=== PATIENT | female | born 1965 | race Two or more races ===

== ENCOUNTER 2016-08-03 15:46 | Emergency (ER) | payer OTHER ==
[~2016-08-03] VITALS: Ht 154.9 cm; Wt 59.0 kg
[~2016-08-03 15:46] MED LIST: 1-ME1LIQ PO; ADVA250A INH; ALBU1AER INH; AMIT25TA20 PO; ATOR20TA42 PO; HYDR-3533 PO; LISI-363 PO; MAGN1SOL2 PO; NAPR500 PO; PERI8.6T PO; POLY119S PO; SERT-132 PO
[2016-08-03 15:48] VITALS: BP 194/105; PULSE 93; RESP 17; TEMP 98.7; O2SAT 95
[2016-08-03] MEDS ORDERED: AMLO10TA2 PO (16:15)
[2016-08-03] MEDS ORDERED: ADVA250A INH (16:15)
[2016-08-03] MEDS ORDERED: ATOR40TA16 PO (16:15)
[2016-08-03] MEDS ORDERED: ALBUAER3 INH (16:15)
--- NOTE | 2016-08-03 16:20 | PD ---
HPI Chief Complaint: Abdominal Pain Time Seen by Provider: 16:20 Travel History International Travel<30 days: No Contact w/Intl Traveler<30days: No Traveled to known affect area: No History of Present Illness HPI 51-year-old female with a history of hypertension and hyperlipidemia presents to the emergency department for evaluation of epigastric discomfort for 2 days. The patient states that after eating she has noticed that she has a pressure in her epigastric region and feels as though "food is stuck." She denies any nausea, vomiting, retching, diarrhea. States that she has some bloating. She does have constipation which is chronic, she did have a bowel movement today that was small and hard which is typical for her. She denies any fever, chills , chest pain, shortness of breath, cough or cold symptoms. Denies alcohol or drug use. The patient states that the feeling of the food being stuck is causing her to feel anxious which is why she came to the emergency room. States that she called her PCP about this and they have referred her to a electromyographic technician and she is waiting on her appointment to be scheduled. Prior abdominal surgeries include sections, ovarian cyst removal, lysis of adhesions. No other complaints. PFSH Past Medical History Asthma: Yes Blood Disorders: No Heart Rhythm Problems: No Cancer: No Cardiovascular Problems: No High Cholesterol: Yes Chemotherapy: No Chest Pain: No Congestive Heart Failure: No COPD: No Diabetes: No Endocrine: No Genitourinary: No Headaches: Yes Hypertension: Yes Musculoskeletal: Yes (BACK PROBLEMS) Neurologic: No Psychiatric: No Respiratory: Yes Migraines: Yes Radiation Therapy: No Sleep Apnea: No Thyroid Disease: No ?: Not Menopausal: Yes Ectopic : Yes Past Surgical History Abdominal Surgery: Yes (C SECTION) Appendectomy: Yes Section: Yes (X 3) Hysterectomy: Yes Pacemaker: No Tonsillectomy: Yes Other Surgery: Yes (LYSIS OF ADHESIONS) Social History Alcohol Use: Yes (OCC) Tobacco Use: No (QUIT 3 MONTHS AGO) Substance Use: No Allergies-Medications (Allergen,Severity, Reaction): Coded Allergies: No Known Allergies (Unverified , 08/03/16) Reported Meds & Prescriptions Reported Meds & Active Scripts Active Reported Amlodipine (Amlodipine Besylate) 10 Mg Tab 10 Mg PO DAILY Atorvastatin (Atorvastatin Calcium) 40 Mg Tab 40 Mg PO HS Advair Diskus Inh (Fluticasone-Salmeterol Inh) 250-50 Mcg/Blist Aer 1 Puff INH BID Rinse mouth after use. Proair Hfa 8.5 GM Inh (Albuterol Sulfate) 90 Mcg/Act Aer 2 Puff INH Q6H PRN 108 mcg/actuation Advair Diskus 250/50 (Salmeterol Xinafoate/Fluticasone) 250 Mcg/50 Mcg Inhp 1 Puff INH BID Review of Systems Except as stated in HPI: all other systems reviewed are Neg Physical Exam Narrative GENERAL: Well-nourished and well-developed pleasant female patient in no acute distress who is nontoxic appearing. SKIN: Warm and dry. HEAD: Normocephalic and atraumatic. EYES: No injection, drainage, or hyphema noted. PERRLA. EOMI. ENT: No nasal drainage noted. Oropharynx is clear . NECK: Supple and the trachea is midline. CARDIOVASCULAR: Regular rate and rhythm. RESPIRATORY: Breath sounds are equal bilaterally with no accessory muscle use, wheezing, rhonchi, or crackles. GASTROINTESTINAL: Mild epigastric tenderness to palpation. Negative Childers's sign. Negative McBurney's point. No rebound tenderness or guarding. Abdomen is soft and nondistended. MUSCULOSKELETAL: No obvious deformities, swelling, cyanosis, or ecchymosis is present throughout the upper and lower extremities. NEUROLOGICAL: Awake, alert, and oriented. Normal speech and gait. Cranial nerves are grossly intact. Data Data Last Documented VS Vital Signs Date Time Temp Pulse Resp B/P Pulse Ox O2 Delivery O2 Flow Rate FiO2 08/03/16 15:48 98.7 93 17 194/105 95 Orders Al-Mag Hy-Si 40-40-4 Mg/Ml Liq (Mag-Al P (08/03/16 16:30) Lidocaine 2% Viscous (Xylocaine 2% Visco (08/03/16 16:30) MDM Medical Decision Making Medical Screen Exam Complete: Yes Emergency Medical Condition: Yes Differential Diagnosis Gastritis versus GERD versus esophageal stricture Narrative Course 51-year-old female presents to the emergency department for evaluation of epigastric abdominal discomfort for 2 days. Patient is afebrile, vital signs are stable. On abdominal examination she has slight epigastric tenderness to palpation however overall abdominal examination is benign. Based on the patient 's history and physical examination it seems that she is describing gastritis or possible esophageal stricture. I reviewed the EMR which shows her last EGD was in 2013 and did show gastritis without any stricture or other abnormality. The patient is administered a GI cocktail. She was able to keep down food and fluids at this time I don't think that she requires any lab work or imaging. She has been referred to a electromyographic technician by her PCP. I discussed with the patient supportive care and the importance of outpatient follow-up with a electromyographic technician. Patient verbalizes understanding and agreement with treatment plan. I discussed the case with my attending physician Dr. Danielle who is aware of the patients history, physical examination findings, and treatment plan. Diagnosis Primary Impression: Gastritis Qualified Code: K29.00 - Acute gastritis without hemorrhage, unspecified gastritis type Referrals: Size Roller Operator Patient Instructions: General Instructions Additional Instructions: Take medications as prescribed. Follow-up with your Primary Care Physician. Return to the ED for any acute worsening of symptoms such as worsening pain, vomiting, inability to eat or drink. Med/Other Pt SpecificInfo: Prescription(s) given Scripts Vrqwqsja-Cbypwnige-Rczxeaeadas Liq (Maalox Max Liq)400-400-40 Mg/5 Ml Susp10 Ml PO QID 5 Days Ref 0 Take between meals or as directed. Shake well. Maximum 60 ml/24 hrs. Prov:Maggi Danielle MD 08/03/16 Ranitidine (Zantac)150 Mg Wvs023 Mg PO BID #60 TAB Ref 0 Prov:Maggi Danielle MD 08/03/16 Disposition: 01 DISCHARGE HOME Condition: Stable Ivette Sellers August 03, 2016 16:20
[2016-08-03] MEDS ORDERED: LIDOCAINE VISCOUS 2% SOLN 15 ML UDC PO ONE (16:30)
[2016-08-03] MEDS ORDERED: ALUMINUM/MAGNESIUM/SIMETH 30 ML CUP PO ONE (16:30)
[2016-08-03] MEDS ORDERED: ZANT150T2 PO ×2 (16:31→17:03)
[2016-08-03] MEDS ORDERED: MAALSUS PO ×2 (16:31→17:03)
== END 2016-08-03 17:48 | disposition home or self-care (01) ==
LOC: NEPD 15:46
DX: K29.00 Acute gastritis without bleeding (principal); I10 Essential (primary) hypertension; E78.5 Hyperlipidemia, unspecified; J45.909 Unspecified asthma, uncomplicated
CPT/HCPCS: 99283

== ENCOUNTER → 2016-09-27 | Day surgery (SDC) | payer OTHER ==
[~2016-09-27] MED LIST changes: -1-ME1LIQ PO; +ACETAMINOPHEN/HYDROcodone 325 MG/5 MG TAB ONE; -ALBU1AER INH; +ALBUAER3 INH; -AMIT25TA20 PO; +AMLO10TA2 PO; -ATOR20TA42 PO; +ATOR40TA16 PO; -HYDR-3533 PO; +LACTATED RINGER'S 1000 ML INJ 1,000 ML ONE; -LISI-363 PO; +MAALSUS PO; -MAGN1SOL2 PO; +MIDAZOLAM HCL 2 MG/2 ML VIAL ONE; +MORPHINE SULFATE 4 MG/ML INJ ONE; -NAPR500 PO; +ONDANSETRON HCL 4 MG/2 ML VIAL IV PUSH ONE; -PERI8.6T PO; -POLY119S PO; +PROPOFOL 200 MG/20 ML AMP IV ONE; -SERT-132 PO; +TRIAMCINOLONE ACETONIDE 40 MG/ML VIAL ONE; +ZANT150T2 PO; +ceFAZolin INJ 1,000 MG VIAL ONE
--- NOTE | 2016-09-27 14:11 | TN ---
cc: RAY GOMEZ DATE OF SURGERY: September 27, 2016 PREOPERATIVE DIAGNOSIS 1. Left knee internal derangement. POSTOPERATIVE DIAGNOSIS 1. Left knee complex tear medial meniscus. PROCEDURE Left knee arthroscopic surgery - subtotal medial meniscectomy. SURGEON Ray Gomez MD DENTAL FLOSS PACKER MAURY Dickens SPECIMEN None. ESTIMATED BLOOD LOSS None. COMPLICATIONS None. ANESTHESIA General. TOURNIQUET TIME 11 minutes at 250 mmHg. CONDITION Stable. PLAN OF ACTIVITY Per orders. PROCEDURE My psych assistant MAURY Dickens was present for the entire surgical case. She was medically necessary for the entire case because of the complexity of the case and to facilitate the performance of the procedure. The COMPACT ASSEMBLER at the back table was not a skill set for this case to manipulate the instruments, e.g. the arthroscopy arthroscopic carlene and meniscal rongeurs. The patient was brought to the operating room and had satisfactory general anesthesia by Dr. Shasha Martin, Department of Anesthesia. Left lower extremity was prepped and draped in the usual sterile manner. The extremity was exsanguinated by Ernesto wrap. The tourniquet was insufflated to 250 mmHg. Routine anterolateral and anterior medial portals were made. Introduction of the arthroscopic instrument was performed. Inflation of the knee was made with sterile Ringer's lactated solution. Inspection of the patellofemoral compartment showed no significant synovitis, normal patellofemoral compartment. Lateral compartment showed normal lateral compartment. No evidence of any meniscal injury, normal articular surface, anterior cruciate ligament was found to be intact. No evidence of any recent or remote injuries. Medial compartment revealed complex tear involving the posterior medial meniscus. The patient had normal articular surface of the medial tibial plateau and the medial femoral condyle. Subtotal medial meniscectomy was performed with multiple different types of meniscal rongeurs and the shaver. The patient had satisfactory subtotal medial meniscectomy. The knee was irrigated with copious amounts of Ringer's lactated solution. Laparoscopic instruments were removed and the tourniquet was deflated. Incisions were closed with 3-0 Nylon suture. Sterile dressing was applied. The patient tolerated the procedure well and arrived in the recovery room in stable and satisfactory condition. MD CORRINE Lowery/ADRIAN /1:40 PM /1:58 PM
== END | disposition home or self-care (01) ==
LOC: ESDC 11:19
PROVIDERS: ATTEND Orthopaedic Surgery Orthopaedic Surgery of the Spine
DX: S83.232A Complex tear of medial meniscus, current injury, left knee, initial encounter (principal)
CPT/HCPCS: 01400; 29881; J0690; J2250; J2270; J2405; J3010; J7120; J3301